=== PATIENT | male | born 1940 | race Hispanic/Latino ===

== ENCOUNTER 2017-03-01 06:31 | Day surgery (SDC) | payer MEDICARE ==
[2017-03-01] MEDS ORDERED: ECOTRIN PO ONE (06:53)
[2017-03-01] MEDS ORDERED: NACL 0.9% 500 ML 500 ML IV SCH (07:00)
[2017-03-01 07:23] LABS: Eosinophils % (Auto) 4.9 % (0.0-4.3); Hematocrit 43.6 % (35.5-45.6); Hemoglobin 14.4 gm/dl (11.8-15.2); Mean Corpuscular HGB Conc 33 % (32-34); Mean Corpuscular Hemoglobin 31 pg (28-32); Mean Corpuscular Volume 93 fl (84-94); Platelet Count 143 K/mm3 (140-440); Red Blood Count 4.72 M/mm3 (3.65-5.03); Red Cell Distribution Width 14.4 % (13.2-15.2); White Blood Count 5.6 K/mm3 (4.5-11.0)
[2017-03-01 07:35] LABS: Anion Gap 15 mmol/L; BUN/Creatinine Ratio 16.36; Blood Urea Nitrogen 18 mg/dL (9-20); Calcium 9.2 mg/dL (8.4-10.2); Carbon Dioxide 32 mmol/L (22-30); Chloride 98.3 mmol/L (98-107); Glucose 106 mg/dL (75-100); INR 0.94 (0.87-1.13); Potassium 4.6 mmol/L (3.6-5.0); Sodium 141 mmol/L (137-145)
[2017-03-01] MEDS ORDERED: SUBLIMAZE ONE (08:40)
[2017-03-01] MEDS: NITROGLYCERIN SYRINGE 3 ML ONE ×2 (08:40→11:09)
--- NOTE | 2017-03-01 09:08 | Short Stay Summary ---
Short Stay Documentation Date of service: 03/01/17 - History H&P: obtained from office - Allergies and Medications Current Medications: Allergies Iodine and Iodide Containing Produc Allergy (Verified 03/01/17 06:33) Unknown causes flushing, WHELPS Home Medications Medication Instructions Recorded Confirmed Last Taken Type Amlodipine Besylate/Benazepril 5 mg PO DAILY 08/11/14 03/01/17 02/28/17 History [amLODIPine-Benazepril 5/20 mg] Metolazone 2.5 mg PO Q48HR 08/11/14 03/01/17 02/25/17 History Simvastatin 40 mg PO DAILY 08/11/14 03/01/17 02/28/17 History Torsemide [Demadex] 20 mg PO Q48HR 08/11/14 03/01/17 02/28/17 History Aspirin EC [Aspirin Enteric Coated 325 mg PO QDAY #30 tablet 08/12/14 03/01/17 02/28/17 Rx TAB] Gabapentin [Neurontin] 300 mg PO BID 03/01/17 03/01/17 02/28/17 History Hydroxychloroquine [Plaquenil] 200 mg PO QDAY 03/01/17 03/01/17 02/28/17 History Active Medications Sodium Chloride (Nacl 0.9% 500 Ml) 500 mls @ 50 mls/hr IV DIRECT WILLEM Stop: 03/01/17 16:59 Last Admin: 03/01/17 07:30 Dose: 50 mls/hr - Physical exam General appearance: no acute distress Integumentary: no rash HEENT: Atraumatic Lungs: Clear to auscultation Breasts: deferred Heart: Regular rate Gastrointestinal: normal Male Genitourinary: deferred Female Genitourinary: deferred Rectal Exam: deferred Extremities: no ischemia Neurological: Normal gait - Brief post op/procedure progress note Date of procedure: 03/01/17 Pre-op diagnosis: Abnormal MPI Post-op diagnosis: same Procedure: LHC and LV gram Anesthesia: MAC Findings: See report Surgeon: VAUGHN UGARTE Estimated blood loss: none Pathology: none Condition: stable - Hospital course Hospital course: Uneventful - Disposition Condition at discharge: Good Disposition: DC-01 TO HOME OR SELFCARE Short Stay Discharge Plan Activity: advance as tolerated Weight Bearing Status: Partial Weight Bearing Diet: low fat, low cholesterol, low salt Follow up with: SKYLAR COTTON MD [Primary Care Provider] - 7 Days
--- NOTE | 2017-03-01 10:03 | Cardiac Catherization Report ---
LEFT HEART CATHETERIZATION ORDERING PHYSICIAN: Jaylin Strong MD INDICATION FOR PROCEDURE: Shortness of breath, abnormal myocardial perfusion scan revealing a reversible inferior wall defect. PROCEDURES PERFORMED: 1. Selective left and right coronary angiography. 2. Left ventriculography. PROCEDURE: After obtaining written consent, the patient was draped using sterile technique. A 2% lidocaine was injected into the right wrist. A 5-Bulgarian vascular sheath was inserted into the right radial artery. A 5-Bulgarian JL3.5 catheter was used to selectively engage the left coronary artery. A 5-Bulgarian JR4 catheter was used to selectively engage the right coronary artery. A 5-Bulgarian JR4 catheter was used to perform a hand injected LV gram. No complications occurred during the procedure. Hemostasis was achieved at the end of the procedure using manual pressure. ESTIMATED BLOOD LOSS: Minimal. SPECIMEN REMOVED: None. FINDINGS: Aortic pressure is 103/60 with an LV systolic pressure of 120 mmHg. Left ventricular end-diastolic pressure of 22 mmHg. There was evidence of a [id number] gradient of 18 mmHg across the left ventricular outflow tract. CARDIAC STRUCTURES: The left ventricle is normal in size and systolic function. The left ventricular ejection fraction is estimated at 60%. CORONARY ANATOMY: 1. The left main has 10% luminal irregularities. 2. The left anterior descending artery has evidence of patent stent noted in the proximal segment, otherwise 20% luminal irregularities. 3. The left circumflex artery has a 30% ____ focal stenosis, followed by a 50% proximal tubular stenosis. 4. The right coronary artery is a nondominant vessel. The right coronary artery has 10-20% diffuse luminal irregularities. 5. This is a left dominant circulation. IMPRESSION: 1. Nonobstructive coronary artery disease with evidence of patent stent in the mid and proximal LAD. 2. Normal left ventricular size and systolic function. Ejection fraction estimated at 60%. 3. An 18 mmHg [id number] gradient across the left ventricular outflow tract. RECOMMENDATIONS: Continue current medical therapy. JOB# [id number] CATHIE/QUINN
[2017-03-01 10:54] VITALS: BP 123/67
[2017-03-01] MEDS ORDERED: VERSED ONE (11:02)
[2017-03-01] MEDS ORDERED: HEPARIN 10,000 UNITS/10 ML ONE (11:02)
[2017-03-01] MEDS ORDERED: CALAN ONE (11:02)
[2017-03-01] MEDS ORDERED: XYLOCAINE 2% INFILTRATI ONE (11:03)
[2017-03-01] MEDS ORDERED: HEPARIN/NS 5000 UNIT/500ML(CATH LAB) 1,000 ML IR ONE (11:09)
== END 2017-03-01 11:36 | disposition home or self-care (01) ==
LOC: OPU 06:31
PROVIDERS: ATTEND Internal Medicine
DX: I25.10 Atherosclerotic heart disease of native coronary artery without angina pectoris (principal); I10 Essential (primary) hypertension; F41.9 Anxiety disorder, unspecified; M19.90 Unspecified osteoarthritis, unspecified site; J44.9 Chronic obstructive pulmonary disease, unspecified; F32.9 Major depressive disorder, single episode, unspecified; E78.5 Hyperlipidemia, unspecified; Z79.899 Other long term (current) drug therapy; Z72.89 Other problems related to lifestyle; Z88.8 Allergy status to other drugs, medicaments and biological substances
CPT/HCPCS: 36415; 80048; 85025; 85610; 85730; 93005; 93010; 93458; 96374; C1894; J1644; J2250; J2930; J3010; J7040; Q9967

== ENCOUNTER 2017-05-15 08:34 | Day surgery (SDC) | payer MEDICARE ==
[2017-05-15] MEDS ORDERED: NACL 0.9% 1000 ML 1,000 ML IV SCH (10:00)
--- NOTE | 2017-05-15 10:14 | Anesthesia Consultation ---
Anesthesia Consult and Med Hx Date of service: 05/15/17 - Airway Anesthetic Teeth Evaluation: Good, Dentures (upper and lower) ROM Head & Neck: Adequate Mental/Hyoid Distance: Adequate Mallampati Class: Class II Intubation Access Assessment: Possibly Difficult - Pulmonary Exam CTA: Yes - Cardiac Exam Cardiac Exam: RRR - Pre-Operative Health Status ASA Pre-Surgery Classification: ASA3 Proposed Anesthetic Plan: MAC - Pulmonary Hx Smoking: No Hx Asthma: Yes SOB: Yes COPD: Yes Home Oxygen Therapy: Yes Hx Pneumonia: Yes Hx Sleep Apnea: No - Cardiovascular System Hx Hypertension: Yes Hx Heart Attack/AMI: No - Central Nervous System Hx Psychiatric Problems: Yes - Hematic Hx Anemia: No - Other Systems Hx Cancer: No Hx Obesity: Yes - Additional Comments Anesthesia Medical History Comments: cardiac stent x2, home O2, wheezing with cold and wakes up coughing
--- NOTE | 2017-05-15 10:15 | Anesthesia Day of Surgery ---
Anesthesia Day of Surgery - Day of Surgery Patient Examined: Yes Patient H&P Reviewed: Yes Patient is NPO: Yes
[2017-05-15] MEDS ORDERED: DIPRIVAN 10 MG/ML IV ONE (10:18)
[2017-05-15] MEDS ORDERED: WATER FOR IRRIG STERILE IR ONE (10:31)
--- NOTE | 2017-05-15 11:04 | Short Stay Summary ---
Short Stay Documentation Date of service: 05/15/17 Narrative H&P: Patient presents for colon screening. History of colon polyps. Last study 5 years or more in past - History Past Medical History: CAD, COPD, heart failure, hypertension Past Surgical History: hernia repair, bowel surgery Social history: no significant social history, , no smoking - Allergies and Medications Current Medications: Allergies Iodine and Iodide Containing Produc Allergy (Verified 05/15/17 08:35) Unknown causes flushing, WHELPS SWELLING FACE Home Medications Medication Instructions Recorded Confirmed Last Taken Type Amlodipine Besylate/Benazepril 5 mg PO DAILY 08/11/14 05/15/17 05/14/17 History [amLODIPine-Benazepril 5/20 mg] Metolazone 2.5 mg PO Q48HR 08/11/14 05/15/17 05/12/17 History Aspirin EC [Aspirin Enteric Coated 325 mg PO QDAY #30 tablet 08/12/14 05/15/17 05/13/17 Rx TAB] Gabapentin [Neurontin] 300 mg PO BID 03/01/17 05/15/17 05/14/17 History Hydroxychloroquine [Plaquenil] 200 mg PO QDAY 03/01/17 05/15/17 05/14/17 History Albuterol 0.63% NEBS 0.63 mg INHALATION DAILY 05/15/17 05/15/17 05/14/17 History Potassium Chloride 20 meq PO DAILY 05/15/17 05/15/17 05/14/17 History ProAir HFA Inhaler 90 mcg INHALATION PRN PRN 05/15/17 05/15/17 Unknown History Torsemide 20 mg PO DAILY 05/15/17 05/15/17 05/14/17 History Active Medications Sodium Chloride (Nacl 0.9% 1000 Ml) 1,000 mls @ 50 mls/hr IV DIRECT WILLEM Last Admin: 05/15/17 10:22 Dose: 50 mls/hr - Physical exam General appearance: no acute distress, well-nourished Integumentary: no rash, no growths, no abnormal pigmentation HEENT: Atraumatic, PERRLA, EOMI, Mucous membr. moist/pink Lungs: Clear to auscultation, Normal air movement Breasts: deferred Heart: Regular rate, Normal S1, Normal S2, No murmurs, no Gallops Gastrointestinal: normoactive bowel sounds, no tenderness, no distended, no masses, no guarding, no organomegaly Male Genitourinary: deferred Rectal Exam: normal exam-external/orifice, no mass Extremities: no ischemia, pulses intact, pulses symmetrical, No edema, normal temperature, normal color, Full ROM Neurological: Normal gait, Normal speech, Strength at 5/5 X4 ext, Normal tone, Sensation intact, Cranial nerves 3-12 NL - Brief post op/procedure progress note Date of procedure: 05/15/17 Findings: see dictated report Estimated blood loss: none Pathology: none Condition: stable - Disposition Condition at discharge: Good Disposition: DC-01 TO HOME OR SELFCARE - Discharge Diagnoses (1) History of colon polyps Status: Acute Short Stay Discharge Plan Follow up with: SKYLAR COTTON MD [Primary Care Provider] - 7 Days
--- NOTE | 2017-05-15 11:10 | Operative Report ---
Operative Report Operative Report: Date of procedure: 05/15/2017 Preprocedure diagnosis: History of colon polyps, previous study over 5 years ago. Post procedure diagnosis: Mild left colon diverticulosis, no recurrent polyps. Procedure: Colonoscopy to the cecum Endoscopist: Dr. Grubbs Anesthesia: Monitored anesthesia care per anesthesia department Estimated blood loss: 0 Medications: Monitored anesthesia care. See separate report by anesthesia for details. After careful discussion of the nature and purpose of the procedure as well as details of the technique risks benefits and alternatives the patient gave consent. Please see recent history and physical from the office. The patient was placed in the left lateral decubitus position and medicated per anesthesia. A rectal exam was performed sphincter tone was normal there were no masses palpable. The [employer] 570 scope was passed transanally and advanced under continuous direct vision without difficulty to the cecum. The colon was well prepared. The cecum was normal. The ascending colon was normal and on forward and retroflexed views. The transverse colon and descending colon were normal. Scattered diverticula were present throughout the sigmoid colon. The rectum was normal on forward and retroflexed views. The procedure was well-tolerated overall and the patient was observed in recovery. Conclusions: Mild sigmoid diverticulosis, otherwise normal. No recurrent polyps. Plan: Repeat colonoscopy in 5 years. Signed electronically: Dmitriy Grubbs M.D.
[2017-05-15 11:23] VITALS: BP 126/63
--- NOTE | 2017-05-15 12:36 | Post Anesthesia Evaluation ---
- Post Anesthesia Evaluation Patient Participated: Yes Airway Patent: Yes Stable Respiratory Function: Yes Nausea/Vomiting: No Temp > 96.8F: Yes Pain Manageable: Yes Adequeate Hydration: Yes Anesthesia Complications: No
== END 2017-05-15 08:35 | disposition home or self-care (01) ==
LOC: GIO 08:34
PROVIDERS: ATTEND Internal Medicine Gastroenterology
DX: Z09 Encounter for follow-up examination after completed treatment for conditions other than malignant neoplasm (principal); K57.30 Diverticulosis of large intestine without perforation or abscess without bleeding; I25.10 Atherosclerotic heart disease of native coronary artery without angina pectoris; J44.9 Chronic obstructive pulmonary disease, unspecified; I11.0 Hypertensive heart disease with heart failure; I50.9 Heart failure, unspecified; E66.9 Obesity, unspecified; Z68.34 Body mass index [BMI] 34.0-34.9, adult; Z98.890 Other specified postprocedural states; Z87.19 Personal history of other diseases of the digestive system; Z88.8 Allergy status to other drugs, medicaments and biological substances; Z79.899 Other long term (current) drug therapy; Z99.81 Dependence on supplemental oxygen; Z87.01 Personal history of pneumonia (recurrent); Z95.5 Presence of coronary angioplasty implant and graft; Z72.89 Other problems related to lifestyle
CPT/HCPCS: 45378; J2704; J7030

== ENCOUNTER 2017-06-26 09:07 | Outpatient (CLI) | payer MEDICARE ==
[2017-06-26 09:58] LABS: Blood Urea Nitrogen 22 mg/dL (9-20)
[2017-06-26] MEDS ORDERED: NACL ONE (10:10)
--- NOTE | 2017-06-26 11:56 | Cat Scan Report ---
CTA NECK: HISTORY: Occlusion and stenosis of bilateral carotid arteries. TECHNIQUE: Helical CT following IV contrast. Sagittal and coronal reformatted images. 3D volume rendering technique. Stenosis was calculated using NASCET criteria. FINDINGS: The visualized aortic arch, innominate artery and proximal bilateral subclavian arteries are widely patent with less than 20% stenosis. Within the right carotid system: There is moderate to severe partially calcified plaque in the right carotid bulb extending to the proximal right ICA. Stenosis in the proximal right ICA measures 90%. The remainder of the right ICA is widely patent. Within the left carotid system: There is minimal partially calcified plaque in the left carotid bulb. Stenosis measures less than 20% throughout the left carotid system. The cervical vertebral arteries are patent with less than 20% stenosis. 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
== END 2017-06-26 09:08 | disposition home or self-care (01) ==
LOC: CT 09:07
PROVIDERS: ATTEND Surgery Vascular Surgery
DX: I65.23 Occlusion and stenosis of bilateral carotid arteries (principal)
CPT/HCPCS: 36415; 70498; 82565; 84520; Q9967

== ENCOUNTER 2017-07-08 08:59 | Emergency (ER) | payer MEDICARE ==
--- NOTE | 2017-07-08 09:35 | Emergency Department Report ---
Chief Complaint: Abdominal Pain Stated Complaint: ABD PAIN Time Seen by Provider: 07/08/17 09:34 - HPI History of Present Illness: This is a 77-year-old male with multiple medical problems complaining of left lower abdominal pain times one day he's had similar episode in the past. Reports that he has urinary leakage in but he doesn't have any urinary burning frequency or urgency denies any vomiting or diarrhea but says that his stomach is upset. Patient is on oxygen 24 / due to COPD. He denies any back pain. Pain is 5 out of 10. Worse with palpation. Denies any difficulty breathing from norm he is usually short of breath from his chronic COPD. Denies any chest pain. He said he has bilateral inguinal hernia. Patient has appointment with his heart doctor today but stated that he came to the emergency room because of abdominal pain. He just recently had a colonoscopy by Dr. Grubbs and reports that he has vascular disease in his legs and he has bilateral lower extremity swelling which is chronic. She has a history of arthritis, asthma, congestive heart failure, COPD, coronary artery disease with congestive heart failure. He's had heart attack in the past and he has coronary stents. Denies any fever or chills. 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 he's been followed by vascular. patient said that he had recent CT scan of the abdomen with contrast less than a month ago at this hospital - ROS Review of Systems: All systems are negative unless stated in HPI above - Exam Vital Signs: Vital Signs 07/08/17 09:24 Temperature 98.6 F Pulse Rate 89 Respiratory 16 Rate Blood Pressure 136/67 O2 Sat by Pulse 88 Oximetry Physical Exam: Gen:77-year-old male well-nourished well-developed in no acute distress. Abdomen: Tender to palpate the left lower quadrant. Positive guarding and with no rebound. Normal bowel sounds in all quadrants .no peritoneal signs Lungs: Diminished air entry throughout lung auguste due to chronic lung auguste, no adventitious sounds. He is short of breath and exertion. CV: S1-S2, regular rate and rhythm. Extremities: Bilateral lower extremity swelling and which is chronic. MSE screening note: Focused history and physical exam performed. Due to findings the following was ordered:see mdm ED Medical Decision Making - Lab Data Result diagrams: 07/08/17 09:35 - Medical Decision Making MDM: Patient screened by provider in triage area. Appropriate protocol initiated and patient to be seen in main ED by ED Disposition for MSE Condition: Stable
[2017-07-08 09:49] LABS: Basophils % (Auto) 0.5 % (0.0-1.8); Eosinophils % (Auto) 2.5 % (0.0-4.3); Hematocrit 47.1 % (35.5-45.6); Hemoglobin 15.7 gm/dl (11.8-15.2); Mean Corpuscular HGB Conc 33 % (32-34); Mean Corpuscular Hemoglobin 31 pg (28-32); Mean Corpuscular Volume 92 fl (84-94); Platelet Count 146 K/mm3 (140-440); Red Blood Count 5.12 M/mm3 (3.65-5.03); Red Cell Distribution Width 13.9 % (13.2-15.2)
[2017-07-08 10:09] LABS: Alanine Aminotransferase 18 units/L (7-56); Albumin 4.2 g/dL (3.9-5); Albumin/Globulin Ratio 1.2 %; Alkaline Phosphatase 85 units/L (35-129); Anion Gap 14 mmol/L; BUN/Creatinine Ratio 12; Blood Urea Nitrogen 13 mg/dL (9-20); Calcium 9.6 mg/dL (8.4-10.2); Carbon Dioxide 38 mmol/L (22-30); Glucose 113 mg/dL (75-100); Lipase 32 units/L (13-60); Sodium 138 mmol/L (137-145); Total Protein 7.6 g/dL (6.3-8.2)
--- NOTE | 2017-07-08 10:26 | XRay Report ---
CHEST 2 VIEWS INDICATION: Shortness of breath. COMPARISON: None similar. FINDINGS: PA and lateral chest radiographs demonstrate hazy bibasilar atelectasis and/or scarring. Clear remainder lungs. No pleural effusions or CHF. Normal cardiomediastinal silhouette. Aortic knob calcifications. Multilevel thoracic spondylosis. CONCLUSION: Probable chronic bibasilar changes/scarring, as described. Please also correlate clinically and with prior chest imaging, if available. Thank you for the opportunity to participate in this patient's care.
[2017-07-08 10:45] LABS: Bilirubin,Urine NEG (Negative); Blood,Urine NEG (Negative); Ketones,Urine NEG (Negative); Leukocyte Esterase,Urine NEG (Negative); Nitrite,Urine NEG (Negative)
[2017-07-08] MEDS ORDERED: MORPHINE IV ONE (11:46)
--- NOTE | 2017-07-08 11:50 | Emergency Department Report ---
HPI - General Chief Complaint: Abdominal Pain Time Seen by Provider: 07/08/17 09:35 - HPI HPI: This is a 77-year-old male presents to the emergency department from home with complaint of left lower quadrant abdominal pain since last night that worsened this morning. He denies any nausea, vomiting, diarrhea, fever, back pain or dysuria. He has not taken anything for his symptoms prior to presentation. His primary care physician is Dr. Busby. He has a past medical history of asthma, COPD on oxygen 2 L at home, hypertension, coronary artery disease with 2 stents. Recent travel or sick contacts at home. The pain appears to increase with movement. ED Past Medical Hx - Past Medical History Previous Medical History?: Yes Hx Hypertension: Yes Hx Heart Attack/AMI: No Hx Congestive Heart Failure: No Hx Arthritis: Yes Hx Asthma: Yes Hx COPD: Yes Hx HIV: No - Surgical History Past Surgical History?: Yes Hx Coronary Stent: Yes (X2) - Social History Smoking Status: Never Smoker - Medications Home Medications: Home Medications Medication Instructions Recorded Confirmed Last Taken Type Amlodipine Besylate/Benazepril 5 mg PO DAILY 08/11/14 05/15/17 05/14/17 History [amLODIPine-Benazepril 5/20 mg] Metolazone 2.5 mg PO Q48HR 08/11/14 05/15/17 05/12/17 History Aspirin EC [Aspirin Enteric Coated 325 mg PO QDAY #30 tablet 08/12/14 05/15/17 05/13/17 Rx TAB] Gabapentin [Neurontin] 300 mg PO BID 03/01/17 05/15/17 05/14/17 History Hydroxychloroquine [Plaquenil] 200 mg PO QDAY 03/01/17 05/15/17 05/14/17 History Albuterol 0.63% NEBS 0.63 mg INHALATION DAILY 05/15/17 05/15/17 05/14/17 History Potassium Chloride 20 meq PO DAILY 05/15/17 05/15/17 05/14/17 History ProAir HFA Inhaler 90 mcg INHALATION PRN PRN 05/15/17 05/15/17 Unknown History Torsemide 20 mg PO DAILY 05/15/17 05/15/17 05/14/17 History HYDROcodone/APAP 5-325 [Collins 1 each PO Q6HR PRN #10 tablet 07/08/17 Unknown Rx 5/325] ED Review of Systems ROS: Stated complaint: ABD PAIN Other details as noted in HPI Comment: All other systems reviewed and negative Constitutional: denies: chills, fever Eyes: denies: eye pain, eye discharge, vision change ENT: denies: ear pain, throat pain Respiratory: denies: cough, shortness of breath, wheezing Cardiovascular: denies: chest pain, palpitations Gastrointestinal: abdominal pain. denies: nausea, vomiting Genitourinary: denies: urgency, dysuria Musculoskeletal: denies: back pain, joint swelling, arthralgia Skin: denies: rash, lesions Neurological: denies: headache, weakness, paresthesias Physical Exam - Physical Exam Vital Signs: Vital Signs 07/08/17 07/08/17 09:24 09:34 Temperature 98.6 F Pulse Rate 89 Respiratory 16 Rate Blood Pressure 136/67 O2 Sat by Pulse 88 92 Oximetry Physical Exam: GENERAL: The patient is well-developed well-nourished. HENT: Normocephalic. Atraumatic. Patient has moist mucous membranes. EYES: Extraocular motions are intact. Pupils equal reactive to light bilaterally. NECK: Supple. Trachea is midline. CHEST/LUNGS: Clear to auscultation. There is no respiratory distress noted. HEART/CARDIOVASCULAR: Regular. There is no tachycardia. There is no gallop rub or murmur. ABDOMEN: Abdomen is soft. Mild left lower quadrant tenderness to palpation. No guarding or rebound tenderness. Patient has normal bowel sounds. There is no abdominal distention. SKIN: Skin is warm and dry. NEURO: The patient is awake, alert, and oriented. The patient is cooperative. The patient has no focal neurologic deficits. The patient has normal speech. MUSCULOSKELETAL: There is no tenderness or deformity. There is no limitation range of motion. There is no evidence of acute injury. ED Course Vital Signs 07/08/17 07/08/17 09:24 09:34 Temperature 98.6 F Pulse Rate 89 Respiratory 16 Rate Blood Pressure 136/67 O2 Sat by Pulse 88 92 Oximetry ED Medical Decision Making - Lab Data Result diagrams: 07/08/17 09:35 07/08/17 09:35 - Radiology Data Radiology results: report reviewed, image reviewed interpreted by me: Chest x-ray does not show any acute process. There are no pleural effusions, obvious pneumonia and there is no pneumothorax. PROCEDURE: CT ABDOMEN PELVIS WO CON TECHNIQUE: Computerized axial tomography of the abdomen and pelvis was performed without intravenous contrast. This study is performed without intravascular contrast material and its sensitivity for abdominal and pelvic pathology, including neoplasms, inflammation, abscess, free fluid, thrombosis, arterial dissection and infarction, is reduced compared with a contrast enhanced study. HISTORY: LLQ abd pain COMPARISON: No prior studies are available for comparison. FINDINGS: Lower Lung auguste: Small patchy alveolar densities are present in the lung bases probably representing a small amount of atelectasis. Calcified granuloma is seen in the left lower lobe. No effusions are identified. Upper Abdomen: There are few small calcified granulomas scattered in the liver which is otherwise unremarkable. The gallbladder, the adrenal glands and the pancreas are unremarkable. Calcified granulomas seen in the spleen which is otherwise unremarkable. Kidneys, Ureters and Urinary bladder: There is a 1.5 centimeter low-density nodule projecting posteriorly from the upper 3rd of the right kidney and a 1.2 centimeter low-density nodule projecting from the upper 3rd 3rd of the left kidney anteriorly which appear to represent renal cortical cysts. Nonspecific small calcifications seen in the renal cortex of both kidneys measuring up to 3 millimeters. Kidneys ureters and urinary bladder otherwise unremarkable. Retroperitoneum: Atherosclerotic changes are seen in the abdominal aorta. No aneurysm is visualized. Nonspecific subcentimeter lymph nodes are seen in the retroperitoneum. No pathologically enlarged lymph nodes are identified. Bowel: There is mild to moderate sigmoid diverticulosis. On image 118 series 3 of the axial images and several adjacent images there is mild wall thickening seen in the proximal sigmoid colon with inflammatory change in the adjacent mesentery. This is located anteriorly in the left lower quadrant, the appearance suggest diverticulitis. No abscess ascites or free intraperitoneal gas is visualized. The appendix is not clearly visualized. There is no inflammatory change in the right lower quadrant. Small right inguinal hernia containing adipose tissue visualized. No herniated loops of bowel are seen. A moderate to large left inguinal hernia is visualized containing adipose tissue. No herniated loops of bowel are seen. Reproductive organs: Prostate gland does not appear to be enlarged. Other: No acute bony abnormalities are visualized IMPRESSION: Colonic diverticulosis with evidence of diverticulitis in the proximal sigmoid colon. No abscess ascites or free intraperitoneal gas is visualized. Prior granulomatous disease. Small renal cortical cysts suspected as described. If further evaluation of the kidneys is clinically indicated renal ultrasound could be performed. Small right inguinal hernia and moderate to large left inguinal hernia visualize containing adipose tissue bilaterally. No herniated loops of bowel are seen.. Transcribed By: YOGESH Dictated By: VAN TREJO MD Electronically Authenticated By: VAN TREJO MD Signed Date/Time: 07/08/17 5399 - Medical Decision Making 77-year-old male presents with lower abdominal pain, mostly in the left lower quadrant, since last night but worsening of it this morning. Labs are mostly unremarkable including normal belly labs including bilirubin, lipase and LFTs and no leukocytosis. Urinalysis is clean. CT scan of the abdomen and pelvis shows diverticulosis without diverticulitis, adipose filled inguinal hernia, renal cortical cysts, and some other incidental findings but no significant or acute process or obvious etiology of his symptoms. He was given some pain medication and reevaluated multiple times for multiple hours and currently is feeling much better. He has good follow-up with primary care and gastroenterology. He will return to the ER with any worsening of his symptoms or any acute distress. - Differential Diagnosis diverticulosis, diverticulitis, appendicitis, colitis Critical Care Time: No Critical care attestation.: If time is entered above; I have spent that time in minutes in the direct care of this critically ill patient, excluding procedure time. ED Disposition Clinical Impression: Abdominal pain Qualifiers: Abdominal location: unspecified location Qualified Code(s): R10.9 - Unspecified abdominal pain Diverticulosis Qualifiers: Diverticulosis site: unspecified location Diverticulosis bleeding: diverticulosis without bleeding Qualified Code(s): K57.90 - Diverticulosis of intestine, part unspecified, without perforation or abscess without bleeding Disposition: DC-01 TO HOME OR SELFCARE Is pt being admited?: No Condition: Stable Instructions: Diverticulosis (ED), Diverticulosis Diet (ED), Abdominal Pain (ED ) Additional Instructions: Please follow-up with your primary care physician and/or environmental technician. Return to the emergency Department with any worsening of your symptoms or any acute distress. You have been prescribed a medication that is sedating and therefore should not be taken prior to driving, working, and responsible for children and in no way should be mixed with alcohol of any quantity. Prescriptions: HYDROcodone/APAP 5-325 [Collins 5/325] 1 each PO Q6HR PRN #10 tablet PRN Reason: Pain Referrals: PRIMARY CARE, [Primary Care Provider] - 3-5 Days Time of Disposition: 18:05
[2017-07-08] MEDS ORDERED: NACL ONE (12:05)
[2017-07-08] MEDS ORDERED: TORADOL IV ONE (15:24)
[2017-07-08] MEDS ORDERED: TORADOL ONE (15:28)
--- NOTE | 2017-07-08 17:58 | Cat Scan Report ---
FINAL REPORT PROCEDURE: CT ABDOMEN PELVIS WO CON TECHNIQUE: Computerized axial tomography of the abdomen and pelvis was performed without intravenous contrast. This study is performed without intravascular contrast material and its sensitivity for abdominal and pelvic pathology, including neoplasms, inflammation, abscess, free fluid, thrombosis, arterial dissection and infarction, is reduced compared with a contrast enhanced study. HISTORY: LLQ abd pain COMPARISON: No prior studies are available for comparison. FINDINGS: Lower Lung auguste: Small patchy alveolar densities are present in the lung bases probably representing a small amount of atelectasis. Calcified granuloma is seen in the left lower lobe. No effusions are identified. Upper Abdomen: There are few small calcified granulomas scattered in the liver which is otherwise unremarkable. The gallbladder, the adrenal glands and the pancreas are unremarkable. Calcified granulomas seen in the spleen which is otherwise unremarkable. Kidneys, Ureters and Urinary bladder: There is a 1.5 centimeter low-density nodule projecting posteriorly from the upper 3rd of the right kidney and a 1.2 centimeter low-density nodule projecting from the upper 3rd 3rd of the left kidney anteriorly which appear to represent renal cortical cysts. Nonspecific small calcifications seen in the renal cortex of both kidneys measuring up to 3 millimeters. Kidneys ureters and urinary bladder otherwise unremarkable. Retroperitoneum: Atherosclerotic changes are seen in the abdominal aorta. No aneurysm is visualized. Nonspecific subcentimeter lymph nodes are seen in the retroperitoneum. No pathologically enlarged lymph nodes are identified. Bowel: There is mild to moderate sigmoid diverticulosis. On image 118 series 3 of the axial images and several adjacent images there is mild wall thickening seen in the proximal sigmoid colon with inflammatory change in the adjacent mesentery. This is located anteriorly in the left lower quadrant, the appearance suggest diverticulitis. No abscess ascites or free intraperitoneal gas is visualized. The appendix is not clearly visualized. There is no inflammatory change in the right lower quadrant. Small right inguinal hernia containing adipose tissue visualized. No herniated loops of bowel are seen. A moderate to large left inguinal hernia is visualized containing adipose tissue. No herniated loops of bowel are seen. Reproductive organs: Prostate gland does not appear to be enlarged. Other: No acute bony abnormalities are visualized IMPRESSION: Colonic diverticulosis with evidence of diverticulitis in the proximal sigmoid colon. No abscess ascites or free intraperitoneal gas is visualized. Prior granulomatous disease. Small renal cortical cysts suspected as described. If further evaluation of the kidneys is clinically indicated renal ultrasound could be performed. Small right inguinal hernia and moderate to large left inguinal hernia visualize containing adipose tissue bilaterally. No herniated loops of bowel are seen..
[2017-07-08 18:52] VITALS: BP 139/87
== END 2017-07-08 18:52 | disposition home or self-care (01) ==
LOC: ED 08:59
DX: K57.90 Diverticulosis of intestine, part unspecified, without perforation or abscess without bleeding (principal); I10 Essential (primary) hypertension; M19.90 Unspecified osteoarthritis, unspecified site; J45.909 Unspecified asthma, uncomplicated; J44.9 Chronic obstructive pulmonary disease, unspecified; Z79.82 Long term (current) use of aspirin
CPT/HCPCS: 36415; 71020; 74176; 80053; 81001; 83690; 83880; 84484; 85025; 96374; 96375; 99284; J1885; J2270

== ENCOUNTER 2019-05-27 08:46 | Outpatient (CLI) | payer MEDICARE | END 2019-05-27 08:47 | disposition home or self-care (01) | LOC: CT 08:46 | PROVIDERS: ATTEND Surgery Vascular Surgery | DX: I65.23 Occlusion and stenosis of bilateral carotid arteries (principal) | CPT/HCPCS: 36415; 82565; 84520 ==

== ENCOUNTER 2019-09-04 08:32 | Outpatient (CLI) | payer MEDICARE ==
[2019-09-04 09:27] LABS: Blood Urea Nitrogen 19 mg/dL (9-20)
--- NOTE | 2019-09-04 13:35 | Cat Scan Report ---
CTA neck without and with intravenous contrast material CLINICAL HISTORY: I65.23 OCCLUSION AND STENOSIS OF BILATERAL CAROTID ARTERIES TECHNIQUE: Following acquisition of a timing bolus 0.625 mm thick contiguous axial scans were obtained from aort ic arch to the skull base during rapid bolus intravenous contrast infusion. In addition to evaluation of axial source images multiplanar reconstructions were produced and reviewed for this report. 3 braulio ne MIP reconstructions were also produced. FINDINGS: No abnormalities are seen to involve the visualized portions of the thoracic aorta or at the origins of the great vessels. Right carotid artery: Right common carotid artery has an unremarkable appearance. Evaluation of the c arotid bulb is remarkable for the presence of soft atherosclerotic plaque without associated signific ant stenosis. Cervical segments of the R ICA have an unremarkable appearance. Left carotid artery: Left common carotid artery has an unremarkable appearance. Evaluation of the lef t carotid bifurcation is remarkable for the presence of calcified atherosclerotic plaque along the an terior margin of the carotid bulb. There is no associated stenosis. Calcified plaque is seen along th e posterior aspect of the proximal LICA without stenosis. Remainder the cervical segments of the LICA have an unremarkable appearance. Normal and symmetrical vertebral arteries are present. There is no indication of stenosis along the c ourse of the vertebral arteries. Both vertebral arteries contribute to the basilar artery origin. The basilar artery has an unremarkable appearance. The degree of stenosis, if any, is determined utilizing NASCET like criteria. In this case there is no indication of hemodynamically significant stenosis at the carotid bifurcations or elsewhere. Evaluation of the nonvascular soft tissue structures reveal no abnormality. There is no indication of cervical lymphadenopathy. No abnormalities are seen along the course of the airway. Visualized porti ons of the parotid glands and the submandibular salivary glands have a normal appearance. Thyroid gla nd has a normal appearance. Evaluation of the lung apices reveals no evidence of lung nodule or infil trate. Evaluation of the cervical spine is remarkable for advanced degenerative changes at the C5-6 a nd C6-7 levels. IMPRESSION: No indication of hemodynamically significant stenosis at the carotid bifurcations or elsewhere.. All CT examinations performed at this facility utilize modulated dose reduction, iterative reconstruc tion or weight-based dosing, as appropriate, to obtain a radiation dose which is as low as can reason ably be achieved. Signer Name: Hardik Carpio MD Signed: 09/04/2019 1:31 PM Workstation Name: [id number]
== END 2019-09-04 08:33 | disposition home or self-care (01) ==
LOC: CT 08:32
PROVIDERS: ATTEND Surgery Vascular Surgery
DX: I65.23 Occlusion and stenosis of bilateral carotid arteries (principal)
CPT/HCPCS: 36415; 70498; 82565; 84520; Q9967

== ENCOUNTER 2021-07-04 08:51 | Day surgery (SDC) | payer MEDICARE ==
[~2021-07-04 08:51] MED LIST: SODIUM CHLORIDE 0.9% 1000 ML 1,000 ML IV SCH
[2021-07-04] MEDS ORDERED: IPRATROPIUM/ALBUTEROL SULFATE 3 ML AMPUL.NEB IH ONE (10:17)
[2021-07-04] MEDS ORDERED: propofoL 200 MG/20 ML VIAL IV ONE (10:42)
[2021-07-04] MEDS ORDERED: KETAMINE/STERILE WATER 50 MG/ML SYRINGE ONE (10:42)
[2021-07-04] MEDS ORDERED: LIDOCAINE MPF (2%) 20 MG/1 ML VIAL 5 ML ONE (10:42)
--- NOTE | 2021-07-04 10:49 | Anesthesia Consultation ---
Anesthesia Consult and Med Hx Date of service: 07/04/21 - Airway Anesthetic Teeth Evaluation: Edentulous ROM Head & Neck: Adequate Mental/Hyoid Distance: Adequate Mallampati Class: Class I Intubation Access Assessment: Good - Pulmonary Exam CTA: No (diffuse expiratory wheezing) - Cardiac Exam Cardiac Exam: RRR - Pre-Operative Health Status ASA Pre-Surgery Classification: ASA4 Proposed Anesthetic Plan: MAC - Pulmonary Hx Smoking: No SOB: Yes (chronic; stable) COPD: Yes Home Oxygen Therapy: Yes (2L continuously w/ baseline SpO2 mid-80s on O2.) - Cardiovascular System Hx Hypertension: Yes Hx Coronary Artery Disease: Yes (CAD s/p stents x2) Hx Heart Attack/AMI: No (normal EF) Hx Cardia Arrhythmia: No Hx Pacemaker: No Hx Internal Defibrillator: No Hx Valvular Heart Disease: Yes (mild to moderate ) - Central Nervous System CVA: No - Endocrine Hx Renal Disease: No Hx Liver Disease: No Hx Insulin Dependent Diabetes: No Hx Non-Insulin Dependent Diabetes: No Hx Thyroid Disease: No - Other Systems Hx Obesity: Yes (BMI 34) - Additional Comments Anesthesia Medical History Comments: No hx anesthetic complications. SpO2 55% on RA on arrival to pre-procedure area. Improved to low 90s on 2L NC. Feels breathing is at baseline or slightly better than baseline today. Did not use home inhalers this morning. Will give albuterol neb prior to procedure.
[2021-07-04] MEDS ORDERED: ALBUTEROL 2.5 MG/3 ML NEBU IH PRN (10:50)
--- NOTE | 2021-07-04 10:50 | Anesthesia Day of Surgery ---
Anesthesia Day of Surgery - Day of Surgery Patient Examined: Yes Patient H&P Reviewed: Yes Patient is NPO: Yes
--- NOTE | 2021-07-04 11:16 | Short Stay Summary ---
Short Stay Documentation Date of service: 07/04/21 Narrative H&P: The patient presents for EGD and possible dilation for dysphagia to solid foods. - History Past Medical History: CAD, COPD, heart failure, other (hearing loss, diverticulosis) Past Surgical History: hernia repair, PTCA Social history: smoking (former smoker) - Allergies and Medications Current Medications: Allergies Iodine and Iodide Containing Produc Allergy (Verified 05/15/17 08:35) Unknown causes flushing, WHELPS SWELLING FACE Home Medications Medication Instructions Recorded Confirmed Last Taken Type Amlodipine Besylate/Benazepril 5 mg PO DAILY 08/11/14 05/15/17 05/14/17 History [amLODIPine-Benazepril 5/20 mg] metOLazone [Metolazone] 2.5 mg PO Q48HR 08/11/14 05/15/17 05/12/17 History Aspirin EC [Ecotrin] 325 mg PO QDAY #30 tablet 08/12/14 05/15/17 05/13/17 Rx Gabapentin 300 mg PO BID 03/01/17 05/15/17 05/14/17 History Hydroxychloroquine [Plaquenil] 200 mg PO QDAY 03/01/17 05/15/17 05/14/17 History Albuterol 0.63% NEBS 0.63 mg INHALATION DAILY 05/15/17 05/15/17 05/14/17 History Potassium Chloride 20 meq PO DAILY 05/15/17 05/15/17 05/14/17 History ProAir HFA Inhaler 90 mcg INHALATION PRN PRN 05/15/17 05/15/17 Unknown History Torsemide 20 mg PO DAILY 05/15/17 05/15/17 05/14/17 History HYDROcodone/APAP 5-325 [[place] 1 each PO Q6HR PRN #10 tablet 07/08/17 Unknown Rx 5/325] Atorvastatin 05/31/21 Unknown History Furosemide [Lasix] 40 mg PO 05/31/21 Unknown History Losartan Potassium 100 mg PO 05/31/21 Unknown History Naproxen Sodium [Aleve] BID PRN 05/31/21 Unknown History Potassium Chloride 8 meq PO BID 05/31/21 05/31/21 Unknown History Umeclidinium Brm/Vilanterol Tr 1 each IH 05/31/21 Unknown History [Anoro Ellipta 62.5-25 Mcg INH] Active Medications Albuterol (Albuterol 2.5 Mg/3 Ml Nebu) 2.5 mg IH NOW PRN PRN Reason: Wheezing Sodium Chloride (Nacl 0.9% 1000 Ml) 1,000 mls @ 50 mls/hr IV DIRECT WILLEM - Physical exam General appearance: no acute distress, well-nourished Integumentary: no rash, no growths, no abnormal pigmentation HEENT: Atraumatic, PERRLA, EOMI, Mucous membr. moist/pink Lungs: Clear to auscultation, Normal air movement Breasts: deferred Heart: Regular rate, Normal S1, Normal S2, No murmurs, no Gallops Gastrointestinal: normoactive bowel sounds, no tenderness, no distended, no masses, no guarding, no organomegaly, obese Male Genitourinary: deferred Rectal Exam: deferred Extremities: no ischemia, pulses intact, pulses symmetrical, No edema, normal temperature, normal color, Full ROM Neurological: Normal gait, Normal speech, Strength at 5/5 X4 ext, Normal tone, Sensation intact, Cranial nerves 3-12 NL - Brief post op/procedure progress note Date of procedure: 07/04/21 Procedure: see dictation Estimated blood loss: none Pathology: none Condition: stable - Disposition Condition at discharge: Good Disposition: 01 HOME / SELF CARE / HOMELESS - Discharge Diagnoses (1) Dysphagia Status: Acute Short Stay Discharge Plan Activity: other (No driving for 24 hours.) Weight Bearing Status: Weight Bear as Tolerated Diet: advance as tolerated Follow up with: PRIMARY CARE, [Primary Care Provider] - 7 Days
--- NOTE | 2021-07-04 11:19 | Operative Report ---
Operative Report Operative Report: Date of procedure: 07/04/2021 Procedure: Esophagogastroduodenoscopy with balloon dilation Preprocedure diagnosis: Dysphagia to solid foods Post procedure diagnosis: Schatzki's ring and small sliding hiatal hernia Endoscopist: Dr. Grubbs Anesthesia: Monitored anesthesia care per anesthesia department Medications: Propofol and ketamine per anesthesia Estimated blood loss: 0 After careful discussion of the nature and purpose of the procedure as well as details the technique risks benefits and alternatives consent was obtained. The patient was placed in the left lateral decubitus position and medicated per anesthesia. The tip of the [employer] EQ 570 video scope was passed per orum under direct vision into the esophagus and advanced into the stomach and descending duodenum. The descending duodenum the duodenal bulb and pylorus were symmetrical and normal. The scope was withdrawn into the stomach and the stomach then gently insufflated with air. The antrum was normal. The stomach was further insufflated and the scope was then retroflexed and partially withdrawn. The cardia, fundus, and body of the stomach were within normal limits and easily distensible.The scope was then withdrawn in the forward position. The esophagogastric junction was at 40 cm. There was a nonobstructing Schatzki's ring and a small sliding hiatus hernia noted at the EG junction. In light of the patient's symptoms dilation was performed. A [id number] balloon was passed over the Schatzki's ring and inflated gradually over 2 minutes from 15 mm to 18 mm. The balloon was removed and the area reinspected. No significant trauma was observed. The esophageal body was normal throughout. The procedure was was well tolerated and the patient was observed in recovery. Impressions: Schatzki's ring and small sliding hiatus hernia. Status post balloon dilation. Plan: Repeat dilation as needed. Office follow-up in 6 months. Electronically signed: Dmitriy Grubbs MD
[2021-07-04 12:34] VITALS: BP 115/53
== END 2021-07-04 12:05 | disposition home or self-care (01) ==
LOC: GIO 08:51
PROVIDERS: ATTEND Internal Medicine Gastroenterology
DX: R13.10 Dysphagia, unspecified (principal); K44.9 Diaphragmatic hernia without obstruction or gangrene; K31.89 Other diseases of stomach and duodenum; I10 Essential (primary) hypertension; I25.10 Atherosclerotic heart disease of native coronary artery without angina pectoris; E66.9 Obesity, unspecified; E78.00 Pure hypercholesterolemia, unspecified; J43.9 Emphysema, unspecified; M19.90 Unspecified osteoarthritis, unspecified site; F41.9 Anxiety disorder, unspecified; Z86.010 Personal history of colon polyps; Z79.82 Long term (current) use of aspirin; Z79.899 Other long term (current) drug therapy; Z98.890 Other specified postprocedural states
CPT/HCPCS: 43249; C1726; J2704; J3490; J7030